=== PATIENT | female | born 1965 | race Caucasian/White ===

== ENCOUNTER 2019-04-05 22:15 | Emergency (ER) | payer BC ==
[2019-04-05] MEDS ORDERED: Labetalol 100 MG/20 ML MDV IVPUSH ONE (23:13)
[2019-04-05] MEDS ORDERED: amLODIPine 5 MG Tab PO ONE (23:13)
--- NOTE | 2019-04-05 23:13 | EDM.PDOC ---
ED HPI GENERAL MEDICAL PROBLEM - General Chief Complaint: Cardiovascular Problem Stated Complaint: BLOOD PRESSURE Time Seen by Provider: 04/05/19 23:10 Source of Information: Reports: Patient History Limitations: Reports: No Limitations - History of Present Illness INITIAL COMMENTS - FREE TEXT/NARRATIVE: pt has juan alberto running bps in the 200 range systolicly. She has no other symptoms. She has had a recent fracture of her elebow and she has not been taking pain meds. Onset: Other ( This has been running high for several days. ) Duration: Hour(s): Location: Reports: Other ( bp is very elevated. ) Associated Symptoms: Reports: Other ( elevated bp. 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 right foot fracture Dermatologic History: Reports: Psoriasis - Infectious Disease History Infectious Disease History: Reports: Chicken Pox, Shingles - Past Surgical History HEENT Surgical History: Reports: Tonsillectomy Musculoskeletal Surgical History: Reports: Ganglion Cyst Social & Family History - Tobacco Use Smoking Status *Q: Never Smoker - Caffeine Use Caffeine Use: Reports: Coffee - Recreational Drug Use Recreational Drug Use: No ED ROS GENERAL - Review of Systems Review Of Systems: See Below Constitutional: Reports: Other (bp is markedly elevated. ) HEENT: Reports: No Symptoms Respiratory: Reports: No Symptoms Cardiovascular: Reports: No Symptoms Endocrine: Reports: No Symptoms GI/Abdominal: Reports: No Symptoms : Reports: No Symptoms Musculoskeletal: Reports: No Symptoms Skin: Reports: No Symptoms Neurological: Reports: No Symptoms Psychiatric: Reports: No Symptoms ED EXAM, GENERAL - Physical Exam Exam: See Below Free Text/Narrative:: pt arrived with markedly elevated bp. She is not having symptoms oterwise Exam Limited By: No Limitations General Appearance: Alert, No Apparent Distress, Anxious, Other (pupils equal and reactive. ) Ears: Normal TMs Nose: Normal Inspection Throat/Mouth: Normal Inspection Head: Atraumatic Neck: Normal Inspection Respiratory/Chest: No Respiratory Distress Cardiovascular: Regular Rate, Rhythm, Other ( bp is elevated 220/114) GI/Abdominal: Soft, Non-Tender (Female) Exam: Deferred Rectal (Female) Exam: Deferred Back Exam: Normal Inspection Extremities: Normal Inspection Course - Vital Signs Last Recorded V/S: Last Vital Signs Temp 36.7 C 04/05/19 22:39 Pulse 81 04/05/19 23:36 Resp 14 04/05/19 23:36 BP 186/106 H 04/05/19 23:36 Pulse Ox 94 L 04/05/19 22:58 - Orders/Labs/Meds Orders: Active Orders 24 hr Category Date Time Status CULTURE URINE [RM] Stat Lab 04/06/19 00:18 Ordered Labs: Laboratory Tests 04/05/19 04/05/19 04/05/19 Range/Units 23:12 23:12 23:21 WBC 5.9 (4.5-11.0) K/uL RBC 5.05 (3.30-5.50) M/uL Hgb 14.5 (12.0-15.0) g/dL Hct 43.3 (36.0-48.0) % MCV 86 (80-98) fL MCH 29 (27-31) pg MCHC 34 (32-36) % Plt Count 306 (150-400) K/uL Neut % (Auto) 53 (36-66) % Lymph % (Auto) 36 (24-44) % Nance % (Auto) 9 H (2-6) % Eos % (Auto) 1 L (2-4) % Baso % (Auto) 1 (0-1) % Sodium 139 L (140-148) mmol/L Potassium 3.5 L (3.6-5.2) mmol/L Chloride 101 (100-108) mmol/L Carbon Dioxide 28 (21-32) mmol/L Anion Gap 13.5 (5.0-14.0) mmol/L BUN 17 (7-18) mg/dL Creatinine 0.8 (0.6-1.0) mg/dL Est Cr Clr Drug Dosing 68.61 mL/min Estimated GFR (MDRD) > 60 (>60) Glucose 269 H (74-106) mg/dL Calcium 8.7 (8.5-10.1) mg/dL Total Bilirubin 0.4 (0.2-1.0) mg/dL AST 31 (15-37) U/L ALT 50 (12-78) U/L Alkaline Phosphatase 115 (46-116) U/L Total Protein 7.5 (6.4-8.2) g/dL Albumin 3.5 (3.4-5.0) g/dL Globulin 4.0 H (2.3-3.5) g/dL Albumin/Globulin Ratio 0.9 L (1.2-2.2) Urine Color Yellow (YELLOW) Urine Appearance Cloudy A (CLEAR) Urine pH 5.5 (5.0-8.0) Ur Specific Dodson 1.025 (1.008-1.030) Urine Protein Negative (NEGATIVE) mg/dL Urine Glucose (UA) 250 H (NEGATIVE) mg/dL Urine Ketones Negative (NEGATIVE) mg/dL Urine Occult Blood Negative (NEGATIVE) Urine Nitrite Negative (NEGATIVE) Urine Bilirubin Negative (NEGATIVE) Urine Urobilinogen 0.2 (0.2-1.0) EU/dL Ur Leukocyte Esterase Negative (NEGATIVE) Urine RBC 0-5 (0-5) Urine WBC 0-5 (0-5) Ur Epithelial Cells Many Amorphous Sediment Not seen Urine Bacteria Many Urine Mucus Few Meds: Medications Discontinued Medications Generic Name Dose Route Start Last Admin Trade Name Hadleyq PRN Reason Stop Dose Admin Amlodipine Besylate 2.5 mg 04/05/19 23:13 Norvasc PO 04/05/19 23:14 ONETIME ONE Labetalol HCl 20 mg 04/05/19 23:13 04/05/19 23:35 Normodyne IVPUSH 04/05/19 23:14 20 mg ONETIME ONE Administration Protocol Labetalol HCl Confirm 04/05/19 23:29 04/05/19 23:34 Normodyne Administered 04/05/19 23:30 Not Given Dose 20 mg .ROUTE .STK-MED ONE - Re-Assessments/Exams Free Text/Narrative Re-Assessment/Exam: 04/06/19 00:31 pt had lab work which showed a elevated bs at 269. She was given labatol 20 mg iv and her bp did come down to 177/90. She was given amlodopine 3.75 po. Departure - Departure Time of Disposition: 00:33 Disposition: Home, Self-Care 01 Condition: Fair Clinical Impression: Hypertension, Hyperglycemia Referrals: PCP,None [Primary Care Provider] - Forms: ED Department Discharge Care Plan Goals: push fluids, keep appt at the clinic on , send a copy of the lab work obtained tonight with her, watch the refined sugars over the weekend and try to exercise. keep track of the sugars over the weekend. increase meds to lisinopril 1.5 tabs q am, amlodopine 1.5 tabs in the evening. - My Orders Last 24 Hours: My Active Orders 04/06/19 00:18 CULTURE URINE [RM] Stat - Assessment/Plan Last 24 Hours: My Active Orders 04/06/19 00:18 CULTURE URINE [RM] Stat
[2019-04-05] MEDS ORDERED: Labetalol 20 MG/4 ML Syringe ONE (23:29)
== END 2019-04-06 00:52 | disposition home or self-care (01) ==
LOC: JP.ED 22:15
DX: I10 Essential (primary) hypertension (principal); R73.9 Hyperglycemia, unspecified; Z79.899 Other long term (current) drug therapy
CPT/HCPCS: 36415; 80053; 81001; 85025; 87086; 96374; 99283; J3490

== ENCOUNTER 2020-04-06 06:58 | Day surgery (SDC) | payer BC ==
[~2020-04-06 06:58] MED LIST: Lidocaine 1% with EPINEPHrine 1:100,000 50 ML MDV ONE; Sodium Tetradecyl Sulfate 1% 20 MG/2 ML SDV ONE
[2020-04-06] MEDS ORDERED: fentaNYL 100 MCG/2 ML SDV ONE (07:41)
[2020-04-06] MEDS ORDERED: Propofol 200 MG/20 ML SDV ONE ×3 (07:41→09:25)
[2020-04-06] MEDS ORDERED: Midazolam 1 MG/ML 2 ML SDV ONE (07:42)
[2020-04-06] MEDS ORDERED: Sodium Chloride 0.9% 1,000 ML IV SCH (08:15)
[2020-04-06] MEDS ORDERED: Ondansetron 4 MG/2 ML SDV ONE (08:49)
[2020-04-06] MEDS ORDERED: Sodium Chloride 0.9% 10 ML ONE (09:02)
[2020-04-06] MEDS: Lidocaine 1% w/EPINEPHrine 50 ML, Sodium Bicarbonate 5 MEQ in Sodium Chloride 0.9% 950 ML INJECT SCH ×2 (09:10→09:22)
[2020-04-06] MEDS ORDERED: Acetaminophen/HYDROcodone 325-5 MG Tab PO PRN (10:25)
--- NOTE | 2020-04-07 09:44 | OR ---
DATE OF PROCEDURE: 04/06/2020 SURGEON: Rajesh Molina MD PROCEDURES: 1. Radiofrequency ablation of left greater saphenous vein. 2. Radiofrequency ablation of left anterior accessory vein. 3. Radiofrequency ablation of right greater saphenous vein. 4. Sclerotherapy, left leg, multiple. 5. Sclerotherapy, right leg, multiple. 6. Compression wrap, 20 mmHg (22422), left leg. 7. Compression wrap, 20 mmHg (22419), right leg. COMPLICATIONS: None. ALIGNER BARREL AND RECEIVER: None. PREOPERATIVE DIAGNOSIS: Venous insufficiency with inflammation and pain. POSTOPERATIVE DIAGNOSIS: Venous insufficiency with inflammation and pain. RISKS: Risks, benefits, alternatives, and limitations including, but not limited to infection, bleeding, and perforation were explained to the patient, who wished to proceed. We also discussed DVT formation, chronic wounds, chronic pains, neuropathy, requirement for re-operation or additional procedures, and other risks not listed here. The patient understands these risks and wishes to proceed. PROCEDURE IN DETAIL: The patient was placed in supine position. The left greater saphenous vein was accessed using a 21-gauge needle, then exchanged for a 35,000th wire, then exchanged for a 7-Georgian sheath. This was accessed at the level of the ankle. The left anterior accessory vein would be accessed around the area of the knee. The RFA probe was advanced to greater than 3 cm from the saphenofemoral junction. Tumescent fluid was injected in 1 cm jacket around this and verified a second and a third time. Direct even pressure was held as the probe was deployed x2 proximally and distally and x1 in all other segments. The sheath and device were then removed and direct pressure was held for 10 minutes and Dermabond was applied. The right greater saphenous vein was also performed in same manner, same fashion, same technique, and same sequence, using the same equipment. Entry and ablation of the left anterior accessory vein were also performed in same manner, same fashion, same technique in the same sequence, using the same equipment except this was a short segment and was only ablated singularly. Dermabond was applied to these wounds as described in the left leg. Sclerotherapy was then performed in left and right legs using 0.33% sodium tetradactyl, 5 on the right, 6 on the left. This was always drawn back to ensure intravascular injection only and no more than 2 mL injected in 1 location. Bilateral 2-layer, 2-stage compression wrapping was then performed in a distal to proximal gradient. This was 20 mmHg pressure in a [id number] configuration. The patient tolerated the procedure well. Rajesh Molina MD /[id number]
== END 2020-04-06 11:17 | disposition home or self-care (01) ==
LOC: JP.SDS 06:58
PROVIDERS: ATTEND Surgery
DX: I87.2 Venous insufficiency (chronic) (peripheral) (principal); I83.813 Varicose veins of bilateral lower extremities with pain; I80.03 Phlebitis and thrombophlebitis of superficial vessels of lower extremities, bilateral; I10 Essential (primary) hypertension; E66.9 Obesity, unspecified; E11.9 Type 2 diabetes mellitus without complications; E66.01 Morbid (severe) obesity due to excess calories; Z79.899 Other long term (current) drug therapy; Z68.35 Body mass index [BMI] 35.0-35.9, adult
CPT/HCPCS: 36475; 36476; A9270; J1642; J2250; J2405; J2704; J3010; J7030; J3490

== ENCOUNTER 2020-08-13 07:57 | Day surgery (SDC) | payer BC ==
[~2020-08-13 07:57] MED LIST changes: -Lidocaine 1% with EPINEPHrine 1:100,000 50 ML MDV ONE; +Midazolam 1 MG/ML 2 ML SDV ONE; +Propofol 200 MG/20 ML SDV ONE; -Sodium Tetradecyl Sulfate 1% 20 MG/2 ML SDV ONE; +fentaNYL 100 MCG/2 ML SDV ONE
[2020-08-13] MEDS ORDERED: Sodium Chloride 0.9% 1,000 ML IV SCH (09:00)
[2020-08-13] MEDS ORDERED: Ondansetron 4 MG/2 ML SDV ONE (09:14)
[2020-08-13] MEDS ORDERED: Dexamethasone 4 MG/ML SDV ONE (09:14)
== END 2020-08-13 10:30 | disposition home or self-care (01) ==
LOC: JP.SDS 07:57
PROVIDERS: ATTEND Surgery
DX: Z12.11 Encounter for screening for malignant neoplasm of colon (principal); I10 Essential (primary) hypertension; E11.9 Type 2 diabetes mellitus without complications
CPT/HCPCS: J1100; J2250; J2405; J2704; J3010; J7030